=== PATIENT | male | born 1980 | race Caucasian/White ===

== ENCOUNTER 2021-07-18 10:38 | Emergency (ER) | payer BC ==
[~2021-07-18] VITALS: Ht 185.4 cm; Wt 91.0 kg
[~2021-07-18 10:38] MED LIST: AMOXICILLIN/CL875 MG PO; AMOXICILLIN500 MG OR; AMOXICILLIN875 MG PO; BL IBUPROFEN200 MG PO; FLONASE NASAL50 MCG; MEDDOSEPAK PO; MUCINEX600 MG PO; PREDNISONE10 MG PO; TYLENOL 500MG TAB PO
[2021-07-18 11:02] VITALS: BP 135/88
[2021-07-18 11:15] VITALS: BP 127/89
[2021-07-18 11:30] VITALS: BP 132/90
[2021-07-18 11:45] VITALS: BP 124/88
[2021-07-18 12:00] VITALS: BP 125/92
[2021-07-18 12:15] VITALS: BP 130/86
== END 2021-07-18 12:20 | disposition home or self-care (01) | DRG 103 ==
LOC: ED 10:38
DX: R51.9 Headache, unspecified (principal); F17.200 Nicotine dependence, unspecified, uncomplicated